=== PATIENT | female | born 1940 | race Caucasian/White ===

== ENCOUNTER 2017-06-02 14:38 | Emergency (ER) | payer MEDICARE ==
[2017-06-02 15:58] LABS: URINE BILIRUBIN - DIPSTICK NEGATIVE (NEGATIVE); URINE BLOOD DIPSTICK TRACE-INTACT (NEGATIVE); URINE COLOR YELLOW; URINE GLUCOSE - DIPSTICK NEGATIVE (NEGATIVE); URINE KETONE NEGATIVE (NEGATIVE); URINE LEUK ESTERASE NEGATIVE (NEGATIVE); URINE NITRITE - DIPSTICK NEGATIVE (Negative); URINE PROTEIN - DIPSTICK NEGATIVE (NEG-TRACE); URINE UROBILINOGEN - DIPSTICK 0.2 E.U./dL (0.2)
[2017-06-02 16:07] LABS: HEMATOCRIT 42.5 % (37.0-47.0); HEMOGLOBIN 14.1 g/dl (12.0-16.0); IMMATURE GRANULOCYTES 0.6 % (0.0-1.0); MEAN CELL VOLUME 88.7 fL CALC (80.0-100.0); MEAN CORPUSCULAR HGB 29.4 pG CALC (26.0-32.0); MEAN CORPUSCULAR HGB CONC 33.2 g/L CALC (32.0-36.0); NEUT# 4.45 thou/uL (2.00-7.15); RED BLOOD COUNT 4.79 mill/uL (4.20-5.60); RED CELL DISTRI WIDTH 12.4 % (11.5-15.5)
[2017-06-02 16:10] LABS: URINE CLARITY CLEAR
[2017-06-02 16:14] LABS: INFLUENZA A NONE DETECTED (NONE DETECT); INFLUENZA B NONE DETECTED (NONE DETECT)
[2017-06-02 16:14] LABS: ALBUMIN 4.3 g/dL (3.2-5.0); ALKALINE PHOSPHATASE 119 u/l (38-126); ANION GAP 16 (6-22 (CALC)); BILIRUBIN, TOTAL 0.4 mg/dL (0.0-1.4); BUN 16 mg/dL (8-23); BUN/CREATININE RATIO 16 (12-20 (CALC)); CARBON DIOXIDE 24 mmol/l (22-30); CHLORIDE 106 mmol/l (95-108); GFR 54 ML/MIN (>=60 (CALC)); GFR FOR AFR.AMER. > 60 ML/MIN (>=60 (CALC)); POTASSIUM 4.8 mmol/l (3.5-5.1); SGOT/AST 27 u/l (9-36); SGPT/ALT 37 u/l (11-66); SODIUM 141 mmol/l (137-146); TOTAL PROTEIN 7.1 g/dL (6.3-8.2)
[2017-06-02] MEDS ORDERED: PEPCID20 MG PO (17:03)
[2017-06-02 17:08] VITALS: BP 146/61
[2017-06-02] MEDS ORDERED: MULTI VIT PO (17:14)
[2017-06-02] MEDS ORDERED: VITAMIN7 PO (17:15)
== END 2017-06-02 17:15 | disposition home or self-care (01) ==
LOC: ED 14:38
PROVIDERS: Family Medicine
DX: K29.70 Gastritis, unspecified, without bleeding (principal)

== ENCOUNTER 2021-04-11 16:38 | Emergency (ER) | payer MEDICARE ==
[~2021-04-11] VITALS: Ht 165.1 cm; Wt 57.0 kg
[~2021-04-11 16:38] MED LIST: MULTI VIT PO; PEPCID20 MG PO; VITAMIN7 PO
[2021-04-11] MEDS ORDERED: NAPROXEN500 MG PO (19:26)
[2021-04-11 19:55] VITALS: BP 131/97
== END 2021-04-11 19:55 | disposition home or self-care (01) ==
LOC: ED 16:38
DX: S70.01XA Contusion of right hip, initial encounter (principal); W18.40XA Slipping, tripping and stumbling without falling, unspecified, initial encounter; Y92.512 Supermarket, store or market as the place of occurrence of the external cause

== ENCOUNTER 2021-06-23 07:54 | Day surgery (SDC) | payer MEDICARE ==
[~2021-06-23] VITALS: Ht 165.1 cm; Wt 57.2 kg
[~2021-06-23 07:54] MED LIST changes: +D31000 UNIT PO; +INDERAL10 M1 PO; +MOBIC7.5 M1 PO; +NAPROXEN500 MG PO; +NIACIN SR500 M1 PO; +OMEGA 31000 MG PO; +PROTONIX20 MG PO; +TYLENOL500 MG PO; +[UNRECOGNIZED DRUG - CODE] PO
[2021-06-23 09:50] VITALS: BP 176/80
== END 2021-06-23 10:36 | disposition home or self-care (01) ==
LOC: ORM 07:54
PROVIDERS: ATTEND Physical Medicine & Rehabilitation
DX: Z01.818 Encounter for other preprocedural examination (principal); Z11.59 Encounter for screening for other viral diseases; M47.816 Spondylosis without myelopathy or radiculopathy, lumbar region; G25.2 Other specified forms of tremor; Z98.890 Other specified postprocedural states; F17.210 Nicotine dependence, cigarettes, uncomplicated

== ENCOUNTER 2021-07-07 09:33 | Day surgery (SDC) | payer MEDICARE ==
[~2021-07-07] VITALS: Ht 165.1 cm; Wt 57.2 kg
[2021-07-07 12:54] VITALS: BP 167/76
== END 2021-07-07 11:30 | disposition home or self-care (01) ==
LOC: ORM 09:33
PROVIDERS: ATTEND Physical Medicine & Rehabilitation
DX: M47.816 Spondylosis without myelopathy or radiculopathy, lumbar region (principal); G89.4 Chronic pain syndrome
CPT/HCPCS: J3490

== ENCOUNTER 2021-10-13 08:47 | Day surgery (SDC) | payer MEDICARE ==
[~2021-10-13] VITALS: Ht 160 cm; Wt 54.4 kg
[2021-10-13 12:29] VITALS: BP 167/78
== END 2021-10-13 12:15 | disposition home or self-care (01) ==
LOC: ORM 08:47
PROVIDERS: ATTEND Physical Medicine & Rehabilitation
DX: M47.816 Spondylosis without myelopathy or radiculopathy, lumbar region (principal); G89.4 Chronic pain syndrome
CPT/HCPCS: J3490

== ENCOUNTER 2021-10-27 07:50 | Day surgery (SDC) | payer MEDICARE ==
[~2021-10-27] VITALS: Ht 160 cm; Wt 54.4 kg
[~2021-10-27 07:50] MED LIST changes: +NIACIN100 M1 PO
[2021-10-27 11:12] VITALS: BP 182/78
== END 2021-10-27 11:12 | disposition home or self-care (01) ==
LOC: ORM 07:50
PROVIDERS: ATTEND Physical Medicine & Rehabilitation
DX: M47.816 Spondylosis without myelopathy or radiculopathy, lumbar region (principal); G89.4 Chronic pain syndrome
CPT/HCPCS: J3490

== ENCOUNTER 2024-06-07 15:08 | Emergency (ER) | payer MEDICARE ==
[2024-06-07] VITALS (11 sets, daily range): BP systolic 113–205; BP diastolic 57–97
[~2024-06-07] VITALS: Ht 160 cm; Wt 52.6 kg
[2024-06-07] MEDS ORDERED: CYCLOBENZAPRINE HCL 5 MG TAB PO ONE (15:20)
[2024-06-07] MEDS ORDERED: cloNIDine HCL 0.1 MG/TAB PO ONE (15:20)
[2024-06-07] MEDS ORDERED: KETOROLAC TROMETHAMINE 15 MG/ML SDV IM ONE (15:20)
[2024-06-07] MEDS ORDERED: NABUMETONE500 MG PO (17:26)
[2024-06-07] MEDS ORDERED: ORPHENADRINE100 MG PO (17:26)
[2024-06-07] MEDS ORDERED: MEDDOSEPAK PO (17:26)
== END 2024-06-07 17:43 | disposition home or self-care (01) ==
LOC: ED 15:08
DX: M54.32 Sciatica, left side (principal)
CPT/HCPCS: J1100; J1885